=== PATIENT | male | born 1940 | race Caucasian/White ===

== ENCOUNTER 2022-02-06 19:08 | Emergency (ER) | payer OTHER ==
--- OUTSIDE RECORDS SUMMARY | 2022-02-06 19:11 | XMS REPORT | Continuity of Care Document ---
:1940 Author Organization [facility] t Address [address] [place] [address] Care Team Providers Name Role Phone Unavailable Unavailable Unavailable Problems Condition Condition Condition Status Onset Resolution Last Treating Co mments Source Name Details Category Date Date Treatment Clinician Date Hyperchole Hyperchole Disease Active 2015-[address] sterolemia sterolemia Cathy kes 00:00: Medical 00 [place] History of History of Disease Active 2015-[address] CVA [facility]A [facility] ([facility] (cerebrova 00:00: Al dical scular scular 00 [place] accident) accident) Unstable Unstable Disease [facility] 00 [place] Ureteral Ureteral Disease [facility] 2015[facility] calculus [facility]: [facility] 00 [place] CAD CAD Disease Active 2015-[address] [facility] [address] [facility] artery artery 00:00: Medical disease) disease) 00 Center Hx of CABG Hx of CABG Disease Active 2015-[address] [facility] 00[facility] Hypertensi Hypertensi Disease Active 2015-[address] [facility] 00:00: Medical 00 [place] Kidney Kidney Disease Active 2015-[address] [facility] [address] [facility] 00:00: Medical 00 Center Allergies, Adverse Reactions, Alerts Allergy Allergy Status Severity Reaction(s) Onset Inactive Treating Comm ents Source Name Type Date Date Clinician NO KNOWN Allergy Active [facility] Social History Social Habit Start Date Stop Date Quantity Comments Source Sex Ass[birth year] At [birth year] JEANNETTE Lebron 00:00:00 00:00:00 [facility] Medications This patient has no known medications. Procedures This patient has no known procedures. Results This patient has no known results.
[2022-02-06] MEDS ORDERED: TETANUS & DIPHTHERIA TOX,ADULT 0.5 ML VIAL ONE (20:18)
--- NOTE | 2022-02-06 21:05 | RAD REPORT ---
EXAM DESCRIPTION: CT - CTHCSPWOC - 02/06/2022 8:43 pm CLINICAL HISTORY: fall COMPARISON: CT HEAD CSPINE MPR WO CONTRAST dated 03/26/2014; Facial Bones W/ Mpr dated 02/06/2022 TECHNIQUE: Axial 5 mm thick images of the head were obtained. Axial 2 mm thick images of the cervic al spine were obtained with sagittal and coronal reconstruction images generated and reviewed. All CT scans are performed using dose optimization technique as appropriate and may include automated exposure control or mA/KV adjustment according to patient size. FINDINGS: No intracranial hemorrhage, mass, edema or acute intracranial finding. No acute cortical b ased infarction. No cortical edema or sulcal effacement. Atrophy changes are mild. Moderate chronic i schemic change seen in the cerebral white matter. Atrophy of the cerebellum is seen. The intracranial findings are not clearly different from comparison. No extra-axial fluid collections. Mastoid air ce lls are clear. Sinuses, orbits and facial bones are separately detailed. Cervical body height and alignment are normal. All disc spaces are narrowed. There is peripheral calc ification at the C2-3 level indicating at least partial fusion. Endplate spurring and uncovertebral j oint hypertrophy cause borderline or mild central spinal stenosis at C4-5 and C5-6. Bony foraminal en croachment present at these levels. Advanced facet joint degenerative changes are present. An acute f racture is not seen. No pathologic bone process. Degenerative changes are present at the dens and C1 level. Central canal detail is inherently limited. No paraspinal mass or hematoma. IMPRESSION: No hemorrhage, edema or acute intracranial finding. Cervical spine degenerative change with no acute finding. Orbits, sinuses and facial bones are separately detailed.
--- NOTE | 2022-02-06 21:08 | RAD REPORT ---
EXAM DESCRIPTION: CT - Facial Bones W/ Mpr - 02/06/2022 8:43 pm CLINICAL HISTORY: Fall, facial trauma COMPARISON: CT head same date TECHNIQUE: Axial 2 millimeter thick images of the facial bones were obtained with sagittal and coron al reconstruction imaging. All CT scans are performed using dose optimization technique as appropriate and may include automated exposure control or mA/KV adjustment according to patient size. FINDINGS: Small scalp hematoma overlies the right-side of the frontal bone. Underlying bone frontal sinus are intact. No globe or orbital content injury seen. Paranasal sinuses are clear. There is mini mal left deviation of the midportion nasal septum. Mastoid air cells are clear. Dense arterial tree c alcifications are present. Patient appears to have delete select fractures of the nasal bone. No angulation or distraction. No o ther facial bone fractures seen. Condyles of the mandible are normally positioned. No fracture of the mandible seen. IMPRESSION: Small frontal scalp hematoma with underlying bone and frontal sinus intact. Suspected nondisplaced fractures of the nasal bone.
[2022-02-06] MEDS ORDERED: LIDOCAINE 1% MPF 30 ML VIAL ONE (21:41)
--- NOTE | 2022-02-06 22:01 | EDPHYS ---
Physician Documentation [facility] Name: Jairo Verde Age: 82 yrs Sex: Male : 1940 Arrival Date: 02/06/2022 Time: 19:08 Bed Treatment Private MD: ED Physician Naseem Prieto HPI: 02/06 22:00 This 82 yrs old Male presents to ER via Ambulatory with complaints of Head Injury-Adult.ms3 22:00 82-year-old male with past medical history of CVA and hypertension presents 1 hour ms3 status post tripping over an uneven sidewalk. Patient denies pain at this time. Patient states he does take an aspirin daily. Patient denies alleviating or inciting factors. Patient denies loss of consciousness, headache, neck pain.. Historical: - Allergies: 19:15 No Known Allergies; kb3 - Home Meds: 19:15 carvedilol 3.125 mg oral tab 1 tab 2 times per day [Active]; nifedipine 30 mg Oral TbER kb3 1 tab once daily [Active]; aspirin 81 mg Oral TbEC 1 tab once daily [Active]; - PMHx: 19:15 CVA; Hypertension; kb3 - Immunization history:: Adult Immunizations up to date, Client reports receiving the 2nd dose of the Covid vaccine, Last tetanus immunization: up to date. - Social history:: Smoking status: Patient denies any tobacco usage or history of. ROS: 22:00 Constitutional: Negative for fever, and chills. Neck: Negative for injury, pain, and ms3 swelling, Cardiovascular: Negative for chest pain, and palpitations. Respiratory: Negative for shortness of breath, cough, wheezing, and pleuritic chest pain, Abdomen/GI: Negative for abdominal pain, nausea, vomiting, diarrhea, and constipation, MS/Extremity: Negative for injury and deformity, Neuro: Negative for headache, weakness, numbness, tingling. 22:00 Skin: Positive for abrasion(s), laceration(s). 22:00 All other systems are negative. Exam: 22:00 Constitutional: This is a well developed, well nourished patient who is awake, alert, ms3 and in no acute distress. Head/Face: Normocephalic, atraumatic. Neck: Trachea midline, no cervical lymphadenopathy. Supple, full range of motion without nuchal rigidity, or vertebral point tenderness. No Meningismus. Chest/axilla: Normal chest wall appearance and motion. Nontender with no deformity. Cardiovascular: Regular rate and rhythm with a normal S1 and S2. No gallops, murmurs, or rubs. Normal PMI, no JVD. No pulse deficits. Respiratory: Lungs have equal breath sounds bilaterally, clear to auscultation and percussion. No rales, rhonchi or wheezes noted. No increased work of breathing, no retractions or nasal flaring. Abdomen/GI: Soft, non-tender, with normal bowel sounds. No distension or tympany. No guarding or rebound. No evidence of tenderness throughout. MS/ Extremity: Pulses equal, no cyanosis. Neurovascular intact. Full, normal range of motion. Psych: Awake, alert, with orientation to person, place and time. Behavior, mood, and affect are within normal limits. 22:00 Skin: laceration on nasal bridge, abrasion to chin, below right eye. Vital Signs: 19:12 BP 175 / 98; Pulse 72; Resp 20; Temp 98.0; Pulse Ox 97% ; Weight 77.56 kg; Height 5 ft. kb3 8 in. (172.72 cm); Pain 2/10; 19:12 Body Mass Index 26.00 (77.56 kg, 172.72 cm) kb3 [place] Coma Score: 19:12 Eye Response: spontaneous(4). Verbal Response: oriented(5). Motor Response: obeys kb3 commands(6). Total: 15. Laceration: 22:00 Wound Repair of 1cm ( 0.4in ) subcutaneous laceration to face. Distal ms3 neuro/vascular/tendon intact. Anesthesia: Local anesthetic administered with 2 mls of 1% lidocaine. Wound prep: Simple cleansing by me. Skin closed with 2 5-0 chromic using simple sutures and sterile technique. Patient tolerated well. MDM: 19:35 Patient medically screened. ms3 22:00 Data reviewed: vital signs, nurses notes, radiologic studies, and as a result, I will ms3 discharge patient. ED course: Patient's laceration sutured without complications. Patient to follow-up with his primary care physician in 5 days for suture removal if they have not dissolved. Patient understands agrees with plan. All questions were answered. Return precautions discussed include worsening symptoms, or any other concerns. On reevaluation patient is alert and oriented, in no apparent distress, nontoxic, ambulatory in the emergency department. 02/06 19:34 Order name: CT Head C Spine ms3 02/06 19:34 Order name: CT Facial Bones W/O Con; Complete Time: 21:13 ms3 02/06 19:38 Order name: Head C Spine Mpr Wo Con; Complete Time: 21:13 EDMS 02/06 21:41 Order name: Dressing - Wound; Complete Time: 21:42 kb 02/06 21:41 Order name: Gloves, Sterile; Complete Time: 21:42 kb 02/06 21:41 Order name: Setup Suture Tray; Complete Time: 21:42 kb Administered Medications: 20:21 Drug: Tetanus Immune Globulin 250 units Route: IM; Site: left deltoid; hb 21:42 Follow up: Response: No adverse reaction hb 22:00 Drug: Lidocaine (1 %) 1 vials {Note: adminsiterd by SOPHIA Carlin.} Volume: 5 ml; Route: hb Infiltration; Disposition Summary: 02/06/22 22:00 Discharge Ordered Location: Home ms3 Condition: Stable ms3 Diagnosis - Fracture of nasal bones ms3 - Laceration without foreign body of nose ms3 - Fall (on) (from) unspecified stairs and steps ms3 Discharge Instructions: - Discharge Summary Sheet ms3 - Facial Laceration, [id number] ms3 - Nasal Fracture, [id number]-[id number] ms3 Forms: - Medication Reconciliation Form ms3 - Thank You Letter ms3 - Antibiotic Education ms3 - Prescription Opioid Use ms3 Prescriptions: - Augmentin 875-125 mg Oral Tablet - take 1 tablet by ORAL route every 12 hours for 10 days; 20 tablet; Refills: 0, ms3 Product Selection Permitted Signatures: Dispatcher [employer] Raegan Montez, REVIEW SPECIALIST-C REVIEW SPECIALIST-Imani Houser RN RN Naseem Frazier DO DO ms3 Rochelle Gonzalez, RN RN kb3 Corrections: (The following items were deleted from the chart) 02/07 04:38 04:36 This 82 yrs old Male presents to ER via Ambulatory with complaints of Head ms3 Injury-Adult. ms3
--- NOTE | 2022-02-06 22:01 | ER ---
Nurse's Notes 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 Denies LOC. Coronavirus screen: Vaccine status: Patient reports receiving the 2nd dose of the covid vaccine. Client denies travel out of the [place] in the last 14 days. Ebola Screen: Patient negative for fever greater than or equal to 101.5 degrees Fahrenheit, and additional compatible Ebola Virus Disease symptoms Patient denies exposure to infectious person. Patient denies travel to an Ebola-affected area in the 21 days before illness onset. No symptoms or risks identified at this time. Mechanism of Injury: The problem was sustained at a parking lot, restaurant, resulted from a fall, from a standing position. Initial Sepsis Screen: Does the patient meet any 2 criteria? No. Patient's initial sepsis screen is negative. Does the patient have a suspected source of infection? No. Patient's initial sepsis screen is negative. Risk Assessment: Do you want to hurt yourself or someone else? Patient reports no desire to harm self or others. 19:12 Method Of Arrival: Ambulatory 3 19:12 Acuity: EULALIO 3 kb3 Triage Assessment: 19:15 General: Appears in no apparent distress. Behavior is calm, cooperative. Pain: kb3 Complains of pain in face Pain does not radiate. Pain currently is 2 out of 10 on a pain scale. 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 Full function Gait is steady, Speech is normal, Reports Pain to facial abrasions. Historical: - Allergies: 19:15 No Known Allergies; kb3 - Home Meds: 19:15 carvedilol 3.125 mg oral tab 1 tab 2 times per day [Active]; nifedipine 30 mg Oral TbER kb3 1 tab once daily [Active]; aspirin 81 mg Oral TbEC 1 tab once daily [Active]; - PMHx: 19:15 CVA; Hypertension; kb3 - Immunization history:: Adult Immunizations up to date, Client reports receiving the 2nd dose of the Covid vaccine, Last tetanus immunization: up to date. - Social history:: Smoking status: Patient denies any tobacco usage or history of. Screenin:31 Abuse screen: Denies threats or abuse. Denies injuries from another. Nutritional hb screening: No deficits noted. Tuberculosis screening: No symptoms or risk factors identified. Fall Risk None identified. Assessment: 20:22 General: Appears in no apparent distress. Behavior is calm, cooperative. Pain: Pain hb currently is 2 out of 10 on a pain scale. Neuro: Level of Consciousness is awake, alert, obeys commands, Oriented to person, place, time, situation. Cardiovascular: Patient's skin is warm and dry. Respiratory: Respiratory effort is even, unlabored, Respiratory pattern is regular, symmetrical. GI: No signs and/or symptoms were reported involving the gastrointestinal system. : No signs and/or symptoms were reported regarding the genitourinary system. EENT: No signs and/or symptoms were reported regarding the EENT system. Derm: Skin is pink, warm \T\ dry. Musculoskeletal: No signs and/or symptoms reported regarding the musculoskeletal system. 21:31 Reassessment: Patient appears in no apparent distress at this time. Patient and/or hb family updated on plan of care and expected duration. Pain level reassessed. Patient is alert, oriented x 3, equal unlabored respirations, skin warm/dry/pink. Vital Signs: 19:12 BP 175 / 98; Pulse 72; Resp 20; Temp 98.0; Pulse Ox 97% ; Weight 77.56 kg; Height 5 ft. kb3 8 in. (172.72 cm); Pain 2/10; 19:12 Body Mass Index 26.00 (77.56 kg, 172.72 cm) kb3 [place] Coma Score: 19:12 Eye Response: spontaneous(4). Verbal Response: oriented(5). Motor Response: obeys kb3 commands(6). Total: 15. ED Course: 19:08 Patient arrived in ED. ja2 19:15 Triage completed. kb3 19:15 Arm band placed on right wrist. Bandage applied. kb3 19:20 Naseem Prieto DO is Attending Physician. ms3 19:23 Imani Quinn, RN is Primary Nurse. hb 20:44 Head C Spine Mpr Wo Con In Process Unspecified. EDMS 20:44 CT Facial Bones W/O Con In Process Unspecified. EDMS 21:31 Patient has correct armband on for positive identification. hb 21:43 No provider procedures requiring assistance completed. Patient did not have IV access hb during this emergency room visit. Administered Medications: 20:21 Drug: Tetanus Immune Globulin 250 units Route: IM; Site: left deltoid; hb 21:42 Follow up: Response: No adverse reaction hb 22:00 Drug: Lidocaine (1 %) 1 vials {Note: adminsiterd by SOPHIA Carlin.} Volume: 5 ml; Route: hb Infiltration; Medication: 21:43 Vaccine Information Statement (VIS) provided today. Questions and/or concerns hb addressed. VIS edition date: February 06, 2022. Outcome: 22:00 Discharge ordered by MD. ms3 22:14 Discharged to home ambulatory. hb 22:14 Condition: stable 22:14 Discharge instructions given to patient, Instructed on discharge instructions, follow up and referral plans. medication usage, Demonstrated understanding of instructions, follow-up care, medications, Prescriptions given X 1. 22:14 Patient left the ED. hb Signatures: Dispatcher [employer] EDMS Imani Quinn, RN RN Naseem Prieto DO DO ms3 Daniella Beck Kelly RN RN kb3
[2022-02-06 23:27] VITALS: BP 175/98; TEMP 98; O2SAT 97
== END 2022-02-06 22:14 | disposition home or self-care (01) ==
LOC: ER 19:08
PROC: 0JQ10ZZ Repair Face Subcutaneous Tissue and Fascia, Open Approach (ICD-10-PCS; principal; 2022-02-06)
DX: S02.2XXA Fracture of nasal bones, initial encounter for closed fracture (principal); W01.198A Fall on same level from slipping, tripping and stumbling with subsequent striking against other object, initial encounter; Y93.01 Activity, walking, marching and hiking; Y92.481 Parking lot as the place of occurrence of the external cause; S01.21XA Laceration without foreign body of nose, initial encounter
CPT/HCPCS: 70450; 70486; 72125; 76377; 90471; 90714; 99283

== ENCOUNTER 2022-04-24 10:05 | Emergency (ER) | payer MEDICARE, OTHER ==
--- OUTSIDE RECORDS SUMMARY | 2022-04-24 10:09 | XMS REPORT | Continuity of Care Document ---
:1940 Author Organization [facility] t Address [address] [place] [address] Care Team Providers Name Role Phone Unavailable Unavailable Unavailable Payers Payer Name Policy Type Policy Number Effective Date Expiration Date [facility] [id number] 2020 (MEDICARE 00:00:00 REPLACEMENT HMO) Problems Condition Condition Condition Status Onset Resolution Last Treating Co mments Source Name Details Category Date Date Treatment Clinician Date History of History of Disease Active 2015-[address] CVA CVA 2 [facility] (cerebrova (cerebrova 00:00: Il dical scular scular 00 [place] accident) accident) Unstable Unstable Disease [facility] 00[facility]: Medical 00 [place] Ureteral Ureteral Disease Active 2015[facility] calculus calculus 2 [facility] 00:00: Medical 00 [place] CAD CAD Disease Active 2015-[address] [facility] [facility] (coronary 2- [facility] s artery artery 00:00: Medical disease) disease) 00 Center Hx of CABG Hx of CABG Disease Active 2015-[address] 2-31 [facility] 00:00: Medical 00 [place] Hypertensi Hypertensi Disease Active 2015-[address] [facility] on 2 [facility] 00:00: Medical 00 [place] Hyperchole Hyperchole Disease Active 2015-[address] sterolemia sterolemia 2-31 Cathy kes 00:00: Medical 00 [place] Kidney Kidney Disease Active 2015-[address] [facility] 2[facility]30 [facility] 00:00: Medical 00 [facility] Allergies, Adverse Reactions, Alerts Allergy Allergy Status Severity Reaction(s) Onset Inactive Treating Comm ents Source Name Type Date Date Clinician NO KNOWN Allergy Active [facility] Social History Social Habit Start Date Stop Date Quantity Comments Source Sex Ass[birth year] At [birth year] JEANNETTE Lebron 00:00:00 00:00:00 [facility] Medications This patient has no known medications. Procedures This patient has no known procedures. Encounters Start End Encounter Admission Attending Care Care Encounter Source Date/Time Date/Time Type Type Clinicians Facility Department ID 2020-03-08 2020-03-08 Outpatient [facility] [id number] [facility]:00:00 [facility]:00:00 [facility] Results This patient has no known results.
--- NOTE | 2022-04-24 10:54 | ER ---
Nurse's Notes [facility] Name: Jairo Verde Age: 82 yrs Sex: Male : 1940 Arrival Date: 04/24/2022 Time: 10:07 Bed 11 Private MD: Diagnosis: Pain in right foot;Gout, unspecified Presentation: 04/24 10:38 Chief complaint: Patient states: My right foot has been swollen and hurting for the kr3 last 4 days. It has gotten worse every day. Coronavirus screen: Vaccine status: Patient reports receiving the 2nd dose of the covid vaccine. Client denies travel out of the [place] in the last 14 days. Ebola Screen: Patient denies travel to an Ebola-affected area in the 21 days before illness onset. Initial Sepsis Screen: Does the patient meet any 2 criteria? No. Patient's initial sepsis screen is negative. Does the patient have a suspected source of infection? No. Patient's initial sepsis screen is negative. Risk Assessment: Do you want to hurt yourself or someone else? Patient reports no desire to harm self or others. Onset of symptoms was April 20, 2022. 10:38 Method Of Arrival: Wheelchair kr3 10:38 Acuity: EULALIO 4 kr3 Triage Assessment: 10:41 General: Appears in no apparent distress. uncomfortable, Behavior is calm, cooperative, kr3 appropriate for age. Pain: Complains of pain in right foot. EENT: No signs and/or symptoms were reported regarding the EENT system. Neuro: Level of Consciousness is awake, alert, obeys commands, Oriented to person, place, time, situation. Cardiovascular: Patient's skin is warm and dry. Respiratory: Airway is patent Respiratory effort is even, unlabored, Respiratory pattern is regular, symmetrical. GI: No signs and/or symptoms were reported involving the gastrointestinal system. : No signs and/or symptoms were reported regarding the genitourinary system. Derm: No signs and/or symptoms reported regarding the dermatologic system. Musculoskeletal: Swelling present in right foot. Musculoskeletal: Reports pain in right foot. Historical: - Allergies: 10:40 No Known Allergies; kr3 - PMHx: 10:40 CVA; Hypertension; kr3 - Immunization history:: Adult Immunizations not up to date. - Social history:: Smoking status: Patient denies any tobacco usage or history of. Screenin:43 [facility] ED Fall Risk Assessment (Adult) History of falling in the last 3 months, kr3 including since admission Yes- single mechanical fall (1 pt) Confusion or Disorientation No (0 pts) Intoxicated or Sedated No (0 pts) Impaired Gait No (0 pts) Mobility Assist Device Used No (0 pt) Altered Elimination No (0 pt) Score/Fall Risk Level 0 - 2 = Low Risk. Abuse screen: Denies threats or abuse. Nutritional screening: No deficits noted. Tuberculosis screening: No symptoms or risk factors identified. Assessment: 11:09 Reassessment: Patient appears in no apparent distress at this time. Patient and/or kr3 family updated on plan of care and expected duration. Pain level reassessed. Patient is alert, oriented x 3, equal unlabored respirations, skin warm/dry/pink. Vital Signs: 10:38 BP 139 / 88; Pulse 66; Resp 17; Temp 97.8; Pulse Ox 100% on R/A; kr3 11:09 BP 108 / 76; Pulse 75; Resp 18; Pulse Ox 100% on R/A; kr3 ED Course: 10:07 Patient arrived in ED. as 10:09 [facility]C [facility] snw 10:09 Naseem Prieto DO is Attending Physician. snw 10:38 Frances Stewart, HARPER is Primary Nurse. kr3 10:40 Triage completed. kr3 10:43 Arm band placed on right wrist. Patient placed in an exam room, on a stretcher. kr3 10:44 Bed in low position. Call light in reach. Side rails up X 1. kr3 11:09 No provider procedures requiring assistance completed. Patient did not have IV access kr3 during this emergency room visit. Administered Medications: 10:58 Drug: Cipro (ciprofloxacin) 500 mg Route: PO; kr3 11:11 Follow up: Response: No adverse reaction kr3 10:58 Drug: Colcrys (colchicine) 1.2 mg Route: PO; kr3 11:11 Follow up: Response: No adverse reaction kr3 Medication: 11:10 VIS not applicable for this client. kr3 Outcome: 10:54 Discharge ordered by . snw 11:10 Discharged to home ambulatory. kr3 11:10 Condition: stable 11:10 Discharge instructions given to patient, Instructed on discharge instructions, follow up and referral plans. medication usage, Demonstrated understanding of instructions, follow-up care, medications, Prescriptions given X 3. 11:10 Patient left the ED. kr3 Signatures: Ria Osman, ACCOUNT FINANCIAL MANAGER-C ACCOUNT FINANCIAL MANAGER-Csnw Gretchen German Kelley RN RN kr3 Corrections: (The following items were deleted from the chart) 11:08 11:08 Colcrys (colchicine) 1.2 mg PO kr3 kr3
--- NOTE | 2022-04-24 10:54 | EDPHYS ---
Physician Documentation [facility] Name: Jairo Verde Age: 82 yrs Sex: Male : 1940 Arrival Date: 04/24/2022 Time: 10:07 Bed 11 Private MD: ED Physician Naseem Prieto HPI: 04/24 10:59 This 82 yrs old Male presents to ER via Wheelchair with complaints of Foot Pain - snw infection. 10:59 The patient presents with pain, that is acute, swelling. The complaints affect the snw dorsum of right foot. Context: The problem was sustained at home, resulted from an unknown cause, the patient can partially bear weight. Onset: The symptoms/episode began/occurred acutely, 3 day(s) ago, and became worse every day, and became persistent. Severity of symptoms: At their worst the symptoms were moderate, severe. The patient has experienced a previous episode. seefatimah Alejandra NP. no fever, takes anticoagulants. Historical: - Allergies: 10:40 No Known Allergies; kr3 - PMHx: 10:40 CVA; Hypertension; kr3 - Immunization history:: Adult Immunizations not up to date. - Social history:: Smoking status: Patient denies any tobacco usage or history of. ROS: 10:58 Constitutional: Negative for fever, chills, and weight loss, Eyes: Negative for injury, snw pain, redness, and discharge, ENT: Negative for injury, pain, and discharge, Neck: Negative for injury, pain, and swelling, Cardiovascular: Negative for chest pain, palpitations, and edema, Respiratory: Negative for shortness of breath, cough, wheezing, and pleuritic chest pain, Abdomen/GI: Negative for abdominal pain, nausea, vomiting, diarrhea, and constipation, Back: Negative for injury and pain, : Negative for injury, bleeding, discharge, and swelling, MS/Extremity: Negative for injury and deformity, +pain and swelling to right foot x 3 days Skin: Negative for injury, rash, and discoloration, Neuro: Negative for headache, weakness, numbness, tingling, and seizure, Psych: Negative for depression, anxiety, suicide ideation, homicidal ideation, and hallucinations. Exam: 10:56 Constitutional: This is a well developed, well nourished patient who is awake, alert, snw and in no acute distress. Head/Face: Normocephalic, atraumatic. Eyes: Pupils equal round and reactive to light, extra-ocular motions intact. Lids and lashes normal. Conjunctiva and sclera are non-icteric and not injected. Cornea within normal limits. Periorbital areas with no swelling, redness, or edema. ENT: Nares patent. No nasal discharge, no septal abnormalities noted. Tympanic membranes are normal and external auditory canals are clear. Oropharynx with no redness, swelling, or masses, exudates, or evidence of obstruction, uvula midline. Mucous membranes moist. Neck: Trachea midline, no thyromegaly or masses palpated, and no cervical lymphadenopathy. Supple, full range of motion without nuchal rigidity, or vertebral point tenderness. No Meningismus. Chest/axilla: Normal chest wall appearance and motion. Nontender with no deformity. No lesions are appreciated. Cardiovascular: Regular rate and rhythm with a normal S1 and S2. No gallops, murmurs, or rubs. Normal PMI, no JVD. No pulse deficits. Respiratory: Lungs have equal breath sounds bilaterally, clear to auscultation and percussion. No rales, rhonchi or wheezes noted. No increased work of breathing, no retractions or nasal flaring. Abdomen/GI: Soft, non-tender, with normal bowel sounds. No distension or tympany. No guarding or rebound. No evidence of tenderness throughout. Back: No spinal tenderness. No costovertebral tenderness. Full range of motion. Neuro: Awake and alert, GCS 15, oriented to person, place, time, and situation. Cranial nerves II-XII grossly intact. Motor strength 5/5 in all extremities. Sensory grossly intact. Cerebellar exam normal. Normal gait. Psych: Awake, alert, with orientation to person, place and time. Behavior, mood, and affect are within normal limits. 10:56 Musculoskeletal/extremity: Circulation is intact in all extremities. Sensation intact. right foot edematous, tender to touch, mcp with tenderness and mild erythema. 10:56 Skin: Appearance: normal except for affected area, cellulitis, that is minimal, on the medial aspect of right toes. Vital Signs: 10:38 BP 139 / 88; Pulse 66; Resp 17; Temp 97.8; Pulse Ox 100% on R/A; kr3 11:09 BP 108 / 76; Pulse 75; Resp 18; Pulse Ox 100% on R/A; kr3 MDM: 10:37 Patient medically screened. snw 10:57 Differential diagnosis: contusion, gout/cellulitis. Data reviewed: vital signs, nurses snw notes. Data interpreted: Pulse oximetry: on room air is 100 %. Interpretation: normal. Counseling: I had a detailed discussion with the patient and/or guardian regarding: the historical points, exam findings, and any diagnostic results supporting the discharge/admit diagnosis, the presence of at least one elevated blood pressure reading (>120/80) during this emergency department visit, the need for outpatient follow up, to return to the emergency department if symptoms worsen or persist or if there are any questions or concerns that arise at home. Special discussion: Based on the history and exam findings, there is no indication for further emergent testing or inpatient evaluation. I discussed with the patient/guardian the need to see the primary care provider for further evaluation of the symptoms. Administered Medications: 10:58 Drug: Cipro (ciprofloxacin) 500 mg Route: PO; kr3 11:11 Follow up: Response: No adverse reaction kr3 10:58 Drug: Colcrys (colchicine) 1.2 mg Route: PO; kr3 11:11 Follow up: Response: No adverse reaction kr3 Disposition: 16:12 Co-signature as Attending Physician, Naseem Prieto DO I was immediately available on-site ms3 in the Emergency Department for consultation in the care of the patient. Disposition Summary: 04/24/22 10:54 Discharge Ordered Location: Home snw Condition: Stable snw Diagnosis - Pain in right foot snw - Gout, unspecified snw Followup: snw - With: Emergency Department - When: As needed - Reason: Worsening of condition Followup: snw - With: Private Physician - When: 2 - 3 days - Reason: Recheck today's complaints, Continuance of care, Re-evaluation by your physician Discharge Instructions: - Discharge Summary Sheet snw - Gout snw - Musculoskeletal Pain snw - Low-Purine Eating Plan snw - Heat Therapy snw - Foot Pain snw Forms: - Medication Reconciliation Form snw - Thank You Letter snw - Antibiotic Education snw - Prescription Opioid Use snw Prescriptions: - Cipro 500 mg Oral Tablet - take 1 tablet by ORAL route every 12 hours for 10 days; 20 tablet; Refills: 0, snw Product Selection Permitted - Pepcid 20 mg Oral Tablet - take 1 tablet by ORAL route once daily; 20 tablet; Refills: 0, Product snw Selection Permitted - Prednisone 20 mg Oral Tablet - take 1 tablet by ORAL route every 12 hours for 5 days; 10 tablet; Refills: 0, snw Product Selection Permitted Signatures: Ria Osman, DELICATESSEN STORE MANAGER-C DELICATESSEN STORE MANAGER-Csnw Naseem Prieto DO DO ms3 Frances Stewart RN RN kr3
[2022-04-24] MEDS ORDERED: COLCHICINE 0.6 MG TAB ONE (10:59)
[2022-04-24] MEDS ORDERED: CIPROFLOXACIN HCL 500 MG TAB ONE (10:59)
[2022-04-24 11:15] VITALS: TEMP 97.8; O2SAT 100
[2022-04-24 11:16] VITALS: BP 108/76
== END 2022-04-24 11:10 | disposition home or self-care (01) ==
LOC: ER 10:05
DX: M10.9 Gout, unspecified (principal)
CPT/HCPCS: 99283

== ENCOUNTER 2022-05-12 13:41 | Emergency (ER) | payer MEDICARE ==
--- OUTSIDE RECORDS SUMMARY | 2022-05-12 13:45 | XMS REPORT | Continuity of Care Document ---
:1940 Author Organization [facility] t Address [address] [place] [address] Care Team Providers Name Role Phone Unavailable Unavailable Unavailable Payers Payer Name Policy Type Policy Number Effective Date Expiration Date [facility] [id number] 2020 (MEDICARE 00:00:00 REPLACEMENT HMO) Problems Condition Condition Condition Status Onset Resolution Last Treating Co mments Source Name Details Category Date Date Treatment Clinician Date History of History of Disease Active 2015-[address] [facility] 2 [facility] ([facility]cerebrova 00:00: Tn dical scular scular 00 [place] accident) accident) Unstable Unstable Disease [facility] [place] Ureteral Ureteral Disease [facility] 2015[facility] [place] CAD CAD Disease Active 2015-[address] [facility] (coronary (coronary 2- [facility] artery artery 00:00: Medical disease) disease) 00 [facility] Hx of CABG Hx of CABG Disease Active 2015-[address] [facility] 2-[facility] [place] Hypertensi Hypertensi Disease Active 2015-[address] on on 2 [facility]: [facility] 00 [place] Hyperchole Hyperchole Disease Active 2015-[address] sterolemia sterolemia 2-31 [facility] k[facility] 00:00: Medical 00 [place] Kidney Kidney Disease Active 2015-[address] [facility] [address] stone stone 2-30 [facility] Allergies, Adverse Reactions, Alerts Allergy Allergy Status Severity Reaction(s) Onset Inactive Treating Comm ents Source Name Type Date Date Clinician NO KNOWN Allergy Active [facility] Social History Social Habit Start Date Stop Date Quantity Comments Source Sex Assigned At [birth year] JEANNETTE Lebron 00:00:00 00:00:00 [facility] Medications This patient has no known medications. Procedures This patient has no known procedures. Encounters Start End Encounter Admission Attending Care Care Encounter Source Date/Time Date/Time Type Type Clinicians Facility Department ID 2022-04-27 2022-04-27 Outpatient [facility] DMG [id number] [facility] 00:00:00 00:00:00 0[facility] 2020-03-08 2020-03-08 Outpatient [facility] DMG [id number] [facility] 00:00:00 00:00:00 1120 [facility] l Group 2020-03-08 2020-03-08 Outpatient [facility] DMG [id number] [facility] 00:00:00 00:00:00 0106 [facility] Results This patient has no known results.
--- NOTE | 2022-05-12 14:54 | ER ---
Nurse's Notes [facility] Name: Jairo Verde Age: 82 yrs Sex: Male : 1940 Arrival Date: 05/12/2022 Time: 13:42 Bed IW1 Private MD: Diagnosis: Gout, unspecified Presentation: 05/12 14:11 Chief complaint: Patient states: Left foot swelling x 2 days, denies trauma. jl7 Coronavirus screen: Vaccine status: Patient reports receiving the 2nd dose of the covid vaccine. At this time, the client does not indicate any symptoms associated with coronavirus-19. Ebola Screen: No symptoms or risks identified at this time. Initial Sepsis Screen: Does the patient meet any 2 criteria? No. Patient's initial sepsis screen is negative. Does the patient have a suspected source of infection? No. Patient's initial sepsis screen is negative. Risk Assessment: Do you want to hurt yourself or someone else? Patient reports no desire to harm self or others. Onset of symptoms was May 09, 2022. 14:11 Method Of Arrival: Ambulatory [facility] 14:11 Acuity: EULALIO 3 jl7 Triage Assessment: 14:25 General: Appears in no apparent distress. uncomfortable, Behavior is calm, cooperative, jl7 appropriate for age. Pain: Complains of pain in left foot Pain currently is 7 out of 10 on a pain scale. Historical: - Allergies: 14:14 No Known Allergies; jl7 - Home Meds: 14:14 nifedipine 30 mg Oral TbER 1 tab once daily [Active]; carvedilol 3.125 mg Oral tab 1 jl7 tab 2 times per day [Active]; aspirin 81 mg Oral TbEC 1 tab once daily [Active]; - PMHx: 14:14 CVA; Hypertension; jl7 - Immunization history:: Client reports receiving the 2nd dose of the Covid vaccine. - Social history:: Smoking status: Patient denies any tobacco usage or history of. Screenin:36 [facility] ED Fall Risk Assessment (Adult) History of falling in the last 3 months, jl7 including since admission No falls in past 3 months (0 pts) Confusion or Disorientation No (0 pts) Intoxicated or Sedated No (0 pts) Impaired Gait No (0 pts) Mobility Assist Device Used No (0 pt) Altered Elimination No (0 pt) Score/Fall Risk Level 0 - 2 = Low Risk Oriented to surroundings. Abuse screen: Denies threats or abuse. Denies injuries from another. Nutritional screening: No deficits noted. Tuberculosis screening: No symptoms or risk factors identified. Assessment: 14:36 Reassessment: ER provider in triage assessing pt. jl7 16:43 Reassessment: Pt was discharged prior to medication administration, notified pt by jl7 telephone and returned to ED for administration of ordered medications. Vital Signs: 14:11 BP 106 / 70; Pulse 81; Resp 17; Temp 98.4; Pulse Ox 98% on R/A; Weight 76.66 kg; Height jl7 5 ft. 8 in. (172.72 cm); Pain 7/10; 14:11 Body Mass Index 25.70 (76.66 kg, 172.72 cm) jl7 ED Course: 13:42 Patient arrived in ED. am2 13:54 Anjana Mi PA is PHCP. en 13:54 Naseem Prieto DO is Attending Physician. en 14:14 Triage completed. jl7 14:25 Arm band placed on right wrist. jl7 14:36 Patient has correct armband on for positive identification. jl7 14:36 No provider procedures requiring assistance completed. Patient did not have IV access jl7 during this emergency room visit. Administered Medications: 16:25 Drug: HYDROcodone-acetaminophen 5 mg-325 mg 1 tabs Route: PO; jl7 16:30 Follow up: Response: Medication administered at discharge. jl7 16:25 Drug: Colchicine-Probenecid 2 tabs Route: PO; jl7 16:30 Follow up: Response: Medication administered at discharge. jl7 Medication: 14:36 VIS not applicable for this client. jl7 Outcome: 14:53 Discharge ordered by . en 15:17 Discharged to home ambulatory. jl7 15:17 Condition: stable 15:17 Discharge instructions given to patient, Instructed on discharge instructions, follow up and referral plans. medication usage, Demonstrated understanding of instructions, follow-up care, medications, Prescriptions given X 2. 15:18 Patient left the ED. jl7 16:43 Patient left the ED. jl7 Signatures: Pablo Becerra RN RN jl7 Reanna Gordon am2 Anjana Mi PA PA en Corrections: (The following items were deleted from the chart) 16:35 15:20 Colchicine-Probenecid 2 tabs PO jl7 jl7
--- NOTE | 2022-05-12 14:54 | EDPHYS ---
Physician Documentation [facility] Name: Jairo Verde Age: 82 yrs Sex: Male : 1940 Arrival Date: 05/12/2022 Time: 13:42 Bed IW1 Private MD: ED Physician Naseem Prieto HPI: 05/12 14:42 This 82 yrs old Male presents to ER via Ambulatory with complaints of left toe pain. en 14:42 82-year-old male with history of gout, CAD with stents, hypertension presents to ED en with 2 days of worsening pain, redness over the left first metatarsal joint. He is on allopurinol and his last gout attack was last year. He was seen by his PCP who wrote him antibiotics with resolution. He denies fever, chills, nausea, vomiting. No numbness, tingling or trauma.. Historical: - Allergies: 14:14 No Known Allergies; jl7 - Home Meds: 14:14 nifedipine 30 mg Oral TbER 1 tab once daily [Active]; carvedilol 3.125 mg Oral tab 1 jl7 tab 2 times per day [Active]; aspirin 81 mg Oral TbEC 1 tab once daily [Active]; - PMHx: 14:14 CVA; Hypertension; jl7 - Immunization history:: Client reports receiving the 2nd dose of the Covid vaccine. - Social history:: Smoking status: Patient denies any tobacco usage or history of. ROS: 14:42 Constitutional: Negative for fever, chills, and weight loss. en 14:42 MS/extremity: Positive for Redness, pain, swelling to the left first metatarsal joint. Exam: 14:42 Constitutional: This is a well developed, well nourished patient who is awake, alert, en and in no acute distress. 14:42 Respiratory: the patient does not display signs of respiratory distress. 14:42 Musculoskeletal/extremity: Foreign to motion of bilateral lower extremities. Left foot first metatarsal joint with circumferential swelling, hypersensitive to touch, mild plantar erythema with warmth. No erythema circumferentially around the foot of the toe. Cap refill less than 2 seconds. Doppler signal pulses 2 both DP and PT pulses bilaterally. Vital Signs: 14:11 BP 106 / 70; Pulse 81; Resp 17; Temp 98.4; Pulse Ox 98% on R/A; Weight 76.66 kg; Height jl7 5 ft. 8 in. (172.72 cm); Pain 7/10; 14:11 Body Mass Index 25.70 (76.66 kg, 172.72 cm) jl7 MDM: 13:55 Patient medically screened. en 14:42 Differential Diagnosis cellulitis, gout, inflammation, arthritis. Data reviewed: vital en signs, nurses notes. Test considered but Not performed: Labs: pt with good pulses. no E/O cellulitis or PAD. Likely gout attack. No labs warranted at this time. Care significantly affected by the following chronic conditions: Hypertension, CVA, gout. Counseling: I had a detailed discussion with the patient and/or guardian regarding: the historical points, exam findings, and any diagnostic results supporting the discharge/admit diagnosis, the need for outpatient follow up. Administered Medications: 16:25 Drug: HYDROcodone-acetaminophen 5 mg-325 mg 1 tabs Route: PO; jl7 16:30 Follow up: Response: Medication administered at discharge. 7 16:25 Drug: Colchicine-Probenecid 2 tabs Route: PO; jl7 16:30 Follow up: Response: Medication administered at discharge. 7 Disposition: 18:49 Co-signature as Attending Physician, Naseem Prieto DO I reviewed the patient's care ms3 provided by the Advanced Practice Provider and agree with the diagnosis and treatment plan. Disposition Summary: 05/12/22 14:53 Discharge Ordered Location: Home en Problem: an acute exacerbation en Symptoms: are unchanged en Condition: Stable en Diagnosis - Gout, unspecified en Followup: en - With: Private Physician - When: As needed - Reason: Discharge Instructions: - Discharge Summary Sheet en - Gout en - Gout, [id number] en Forms: - Medication Reconciliation Form en - Thank You Letter en - Antibiotic Education en - Prescription Opioid Use en Prescriptions: - cephalexin 500 mg Oral capsule - take 1 capsule by ORAL route every 6 hours for 7 days; 24 capsule; Refills: 0, en Product Selection Permitted - Anaprox DS 550 mg Oral Tablet - take 1 tablet by ORAL route every 12 hours As needed; 20 tablet; Refills: 0, en Product Selection Permitted Signatures: Pablo Becerra RN RN jl7 Naseem Prieto DO DO ms3 Hiwot, Anjana, PA PA en
[2022-05-12 16:13] VITALS: BP 106/70; TEMP 98.4; O2SAT 98
[2022-05-12] MEDS ORDERED: COLCHICINE 0.6 MG TAB ONE (16:27)
[2022-05-12] MEDS ORDERED: HYDROCODONE/APAP 5/325 MG TAB ONE (16:28)
== END 2022-05-12 16:43 | disposition home or self-care (01) ==
LOC: ER 13:41
DX: M10.9 Gout, unspecified (principal); I10 Essential (primary) hypertension; Z86.73 Personal history of transient ischemic attack (TIA), and cerebral infarction without residual deficits
CPT/HCPCS: 99283

== ENCOUNTER 2024-09-08 20:04 | Observation (INO) | payer MEDICARE ==
[2024-09-08 20:54] LABS: Absolute Basophils 0.1 K/uL (0-0.5); Absolute Eosinophils 0.8 K/uL (0-0.5); Absolute Lymphocytes (CBC) 1.2 K/uL (0.7-4.9); Absolute Monocytes 0.9 K/uL (0.1-1.3); Absolute Neutrophil 7.5 K/uL (1.8-8.0); Basophils % 1.1 % (0-1.3); Eosinophils % 7.2 % (0-4.4); Hematocrit 44.4 % (39.6-49.0); Hemoglobin 15.1 g/dL (13.6-17.9); Lymphocytes % 11.8 % (15.3-44.8); MCH 29.2 pg (27.0-35.0); MCHC 34.1 g/dL (32.0-36.0); MCV 85.6 fL (80-100); MPV 9.2 fL (7.6-11.3); Monocytes % 8.8 % (3.3-12.3); Neutrophils % 71.1 % (41.7-73.7); Nucleated Red Blood Cells % 0.1 % (0-0); Platelets 116 thou/uL (152-406); RBC Red Blood Cell Count 5.18 M/uL (4.33-5.43); Red Cell Distribution Width 15.1 % (12.1-15.2)
[2024-09-08 21:01] LABS: PT Prothrombin Time 12.1 SECONDS (10-13.0); Protime INR 1.06
--- NOTE | 2024-09-08 21:01 | RAD REPORT ---
EXAMINATION: ONE VIEW CHEST XR CLINICAL INDICATION: CHEST PAIN TECHNIQUE: Frontal chest projection is submitted. Examination is limited by patient positioning and t echnique. COMPARISON: 01/02/2015 FINDINGS: The lungs are well inflated and clear. Postsurgical changes of a CABG. Mild cardiomegaly. No displace d fractures identified. Aortic atherosclerosis versus. IMPRESSION: No acute intrathoracic abnormalities.
[2024-09-08] MEDS ORDERED: MORPHINE 4 MG/ML SYR ONE (21:07)
[2024-09-08] MEDS ORDERED: ONDANSETRON 4 MG/2 ML VIAL ONE (21:07)
[2024-09-08 21:14] LABS: ALT/SGPT 19 U/L (16-61); Albumin 3.4 g/dL (3.4-5.0); Alkaline Phosphatase 83 U/L (45-117); Anion Gap 10.2 mEq/L (5.0-15.0); BUN Blood Urea Nitrogen 42 mg/dL (7-18); Bicarbonate 27 mEq/L (21-32); Bilirubin Total 0.5 mg/dL (0.2-1.0); Globulin 3.4 g/dL (2.3-3.5); Glomerular Filtration Rate 32 ml/min (=/>90); Glucose Level 151 mg/dL (74-106); Magnesium 2.3 mg/dL (1.6-2.4); NT PRO-BNP 394 pg/mL (<450); Potassium 4.2 mEq/L (3.5-5.1); Protein, Total 6.8 g/dL (6.4-8.2); Sodium Level 140 mEq/L (136-145); Troponin High Sensitivity 35.2 pg/mL (<58.9)
[2024-09-08 21:18] LABS: AST/SGOT < 10 U/L (15-37); Bilirubin Direct < 0.2 mg/dL (0-0.2); Bilirubin Indirect, Calculated 0.3 mg/dL (0.2-0.8)
--- NOTE | 2024-09-08 21:34 | ER ---
Nurse's Notes [facility] Name: Jairo Verde Age: 84 yrs Sex: Male : 1940 Arrival Date: 09/08/2024 Time: 20:03 Bed 18 Private MD: Diagnosis: Chest pain, unspecified;Acute kidney failure, unspecified;Essential (primary) hypertension Presentation: 09/08 20:10 Chief complaint: EMS states: toned out for CP that radiates to jaw, sudden onset me1 "pressure" 8/10. bp was 220/110. Given aspirin 324 mg po and nitro x3 SL. bp decreased to 146/90, CP decreased to "0/10". Coronavirus screen: Vaccine status: Patient reports receiving the 1st dose of the Covid vaccine. Ebola Screen: No symptoms or risks identified at this time. Initial Sepsis Screen: Does the patient meet any 2 criteria? No. Patient's initial sepsis screen is negative. Does the patient have a suspected source of infection? No. Patient's initial sepsis screen is negative. Risk Assessment: Do you want to hurt yourself or someone else? Patient reports no desire to harm self or others. Onset of symptoms was September 08, 2024 at 17:00. 20:10 Method Of Arrival: EMS: [facility] me1 20:10 Acuity: EULALIO 3 me1 Triage Assessment: 20:15 General: Appears in no apparent distress. well groomed, well developed, well nourished, me1 Behavior is calm, cooperative, appropriate for age, Reports had cp 8/10 that started suddenly "pressure" and radiated to jaw. After aspirin and nitro x 3 pain level is 0/10. Pain: Complains of pain in chest Pain radiates to left jaw Pain currently is 0 out of 10 on a pain scale. at worst was 8 out of 10 on a pain scale. Quality of pain is described as pressure, Pain began suddenly, Is lasting more than 1 hour. EENT: No signs and/or symptoms were reported regarding the EENT system. Neuro: Level of Consciousness is awake, alert, obeys commands, Oriented to person, place, time, situation, Appropriate for age. Cardiovascular: Reports chest pain, Patient's skin is warm and dry. Respiratory: Airway is patent Respiratory effort is even, unlabored, Respiratory pattern is regular, symmetrical. GI: No signs and/or symptoms were reported involving the gastrointestinal system. : No signs and/or symptoms were reported regarding the genitourinary system. Derm: Skin is intact, is healthy with good turgor, Skin is pink, warm \\T\\ dry. Musculoskeletal: No signs and/or symptoms reported regarding the musculoskeletal system. Historical: - Allergies: 20:15 No Known Drug Allergies; me1 - PMHx: 20:15 CVA; Hypertension; me1 - PSHx: 20:15 Coronary artery bypass graft; me1 - Immunization history:: Adult Immunizations up to date. - Infectious Disease History:: Denies. - Social history:: Smoking status: Patient denies any tobacco usage or history of. Screenin:17 [facility] ED Fall Risk Assessment (Adult) History of falling in the last 3 months, me1 including since admission No falls in past 3 months (0 pts) Confusion or Disorientation No (0 pts) Intoxicated or Sedated No (0 pts) Impaired Gait No (0 pts) Mobility Assist Device Used No (0 pt) Altered Elimination No (0 pt) Score/Fall Risk Level 0 - 2 = Low Risk Maintained a safe environment, Provided non-skid footwear, Hourly rounding (assess needs \\T\\ fall precautionary measures) done. Abuse screen: Denies threats or abuse. Nutritional screening: No deficits noted. Tuberculosis screening: No symptoms or risk factors identified. Assessment: 20:17 General: See triage assessment. Pain: Complains of pain in chest Pain currently is 0 me1 out of 10 on a pain scale. Vital Signs: 20:10 BP 165 / 104; Pulse 84; Resp 19; Temp 98.1; Pulse Ox 97% ; Weight 75.3 kg; Height 5 ft. me1 8 in. ; Pain 0/10; 21:00 BP 172 / 111; Pulse 71; Resp 11; Pulse Ox 97% ; me1 21:55 BP 188 / 107; Pulse 74; Resp 14; Pulse Ox 99% ; me1 22:33 BP 197 / 110; Pulse 65; Resp 15; Pulse Ox 97% ; cp4 20:10 Body Mass Index 25.24 (75.30 kg, 172.72 cm) me1 20:10 Pain Scale: Adult wi1 ED Course: 20:03 Patient arrived in ED. vk 20:05 Georgie Galvez PA-C is PHCP. sb4 20:06 Schuyler Holden MD is Attending Physician. sb4 20:09 Jocelyne Daly, HARPER is Primary Nurse. me1 20:15 Triage completed. me1 20:15 Arm band placed on Patient placed in an exam room. me1 20:17 Patient has correct armband on for positive identification. Bed in low position. Call me1 light in reach. Side rails up X2. Provided Education on: POC. Verbalized understanding.. Client placed on continuous cardiac and pulse oximetry monitoring. NIBP monitoring applied. radiation monitor on. Pulse ox on. NIBP on. 20:17 No provider procedures requiring assistance completed. Patient maintains SpO2 me1 saturation greater than 95% on room air. 20:45 Basic Metabolic Panel Sent. me1 20:45 CBC with Diff Sent. me1 20:45 LFT's Sent. me1 20:45 Magnesium Sent. me1 20:45 NT PRO-BNP Sent. me1 20:45 PT-INR Sent. me1 20:45 Troponin HS Sent. me1 20:46 Initial lab(s) drawn, by wi, sent to lab. Inserted saline lock: 22 gauge in left me1 antecubital area, using aseptic technique. 20:58 XRAY Chest (1 view) In Process Unspecified. EDMS 21:33 Prince Wasserman MD is Hospitalizing Provider. sb4 22:58 Patient admitted, IV remains in place. cp4 Administered Medications: 21:17 Drug: morphine IVP or IV 4 mg IVP once over 4 mins Route: IVP; Infused Over: 4 mins; me1 Site: left antecubital; 21:56 Follow up: Response: No adverse reaction; Pain is decreased me1 21:18 Drug: Ondansetron IVP 4 mg IVP once; over 2 minutes Route: IVP; Site: left antecubital; me1 21:56 Follow up: Response: No adverse reaction; Nausea is decreased me1 Medication: 20:17 VIS not applicable for this client. me1 Outcome: 21:33 Decision to Hospitalize by Provider. sb4 22:58 Admitted to Med/surg accompanied by tech, via wheelchair, room 215, with chart, cp4 22:58 Condition: stable 22:58 Discharge instructions given to patient, Instructed on the need for admit, 22:59 Patient left the ED. cp4 Signatures: Dispatcher [employer] Georgie Guzman PA-C PA-C sb4 Jocelyne Daly RN RN me1 Purvi Mccracken cp4 Rosana Ross
--- NOTE | 2024-09-08 21:34 | EDPHYS ---
Physician Documentation [facility] Name: Jairo Verde Age: 84 yrs Sex: Male : 1940 Arrival Date: 09/08/2024 Time: 20:03 Bed 18 Private MD: ED Physician Schuyler Holden HPI: 09/08 20:11 This 84 yrs old Male presents to ER via Unassigned with complaints of Chest Pain. sb4 20:11 The patient or guardian reports chest pain that is located primarily in the substernal sb4 area. Onset: just prior to arrival. The pain radiates to jaw. Associated signs and symptoms: The patient has no apparent associated signs or symptoms. EMS care prior to arrival includes: aspirin, nitroglycerin, x 3, with resolution of the chest pain. Historical: - Allergies: 20:15 No Known Drug Allergies; me1 - PMHx: 20:15 CVA; Hypertension; me1 - PSHx: 20:15 Coronary artery bypass graft; me1 - Immunization history:: Adult Immunizations up to date. - Infectious Disease History:: Denies. - Social history:: Smoking status: Patient denies any tobacco usage or history of. ROS: 20:11 Constitutional: Negative for fever, chills, and weight loss, sb4 20:11 Cardiovascular: Positive for chest pain, 20:11 All other systems are negative, sb4 Exam: 20:11 Constitutional: This is a well developed, well nourished patient who is awake, alert, sb4 and in no acute distress. Head/Face: Normocephalic, atraumatic. Eyes: Extra-ocular motions intact. Periorbital areas with no swelling, redness, or edema. ENT: Mucous membranes moist. Cardiovascular: Regular rate and rhythm with a normal S1 and S2. Respiratory: No increased work of breathing, no retractions or nasal flaring. Abdomen/GI: Soft, non-tender, no distension. Skin: Warm, dry with normal turgor. Normal color with no rashes, no lesions, and no evidence of cellulitis. Vital Signs: 20:10 BP 165 / 104; Pulse 84; Resp 19; Temp 98.1; Pulse Ox 97% ; Weight 75.3 kg; Height 5 ft. me1 8 in. ; Pain 0/10; 21:00 BP 172 / 111; Pulse 71; Resp 11; Pulse Ox 97% ; me1 21:55 BP 188 / 107; Pulse 74; Resp 14; Pulse Ox 99% ; me1 22:33 BP 197 / 110; Pulse 65; Resp 15; Pulse Ox 97% ; cp4 20:10 Body Mass Index 25.24 (75.30 kg, 172.72 cm) me1 20:10 Pain Scale: Adult me1 MDM: 20:06 Medical Screening Exam initiated sb4 22:08 The patient was not given aspirin in the Emergency Department. Administered by EMS. sb4 Data reviewed: vital signs, nurses notes, lab test result(s), EKG, radiologic studies, and as a result, I will admit patient. Counseling: I had a detailed discussion with the patient and/or guardian regarding the historical points, exam findings, and any diagnostic results supporting the discharge/admit diagnosis, the presence of at least one elevated blood pressure reading (>120/80) during this emergency department visit, lab results, radiology results, the need for further work-up and treatment in the hospital. 09/08 20:06 Order name: Basic Metabolic Panel; Complete Time: 17:23 sb4 09/08 20:06 Order name: CBC with Diff; Complete Time: 20:56 sb4 09/08 20:06 Order name: LFT's; Complete Time: 17:23 sb4 09/08 20:06 Order name: Magnesium; Complete Time: 17:23 sb4 09/08 20:06 Order name: NT PRO-BNP; Complete Time: 17:23 sb4 09/08 20:06 Order name: PT-INR; Complete Time: 21:03 sb4 09/08 20:06 Order name: Troponin HS; Complete Time: 17:23 sb4 09/08 21:48 Order name: Basic Metabolic Panel EDMS 09/08 21:48 Order name: Basic Metabolic Panel EDMS 09/08 21:48 Order name: CBC with Automated Diff EDMS 09/08 21:48 Order name: CBC with Automated Diff EDMS 09/08 21:48 Order name: Lipid Profile EDMS 09/08 21:48 Order name: Lipid Profile EDMS 09/08 21:48 Order name: Troponin High Sensitivity EDMS 09/08 21:48 Order name: Troponin High Sensitivity EDMS 09/08 21:48 Order name: Troponin High Sensitivity EDMS 09/08 21:48 Order name: Troponin High Sensitivity EDMS 09/08 21:48 Order name: Troponin High Sensitivity EDMS 09/08 20:06 Order name: XRAY Chest (1 view); Complete Time: 21:03 sb4 09/08 21:48 Order name: Echo with Doppler EDMS 09/08 20:06 Order name: EKG; Complete Time: 20:06 sb4 09/08 20:06 Order name: Cardiac monitoring; Complete Time: 20:36 sb4 09/08 20:06 Order name: EKG - Nurse/Tech; Complete Time: 20:35 sb4 09/08 20:06 Order name: IV Saline Lock; Complete Time: 20:45 sb4 09/08 20:06 Order name: Labs collected and sent; Complete Time: 20:45 sb4 09/08 20:06 Order name: O2 Per Protocol; Complete Time: 20:33 sb4 09/08 20:06 Order name: O2 Sat Monitoring; Complete Time: 20:33 sb4 EC:35 Rate is 78 beats/min. Rhythm is regular, Normal Sinus Rhythm. NC interval is prolonged sb4 at 206 msec. QRS interval is normal at 82 msec. QT interval is normal at 376 msec. No Q waves. T waves are Normal. No ST changes noted. Clinical impression: No evidence of ischemia. Interpreted by me. Reviewed by me. Administered Medications: 21:17 Drug: morphine IVP or IV 4 mg IVP once over 4 mins Route: IVP; Infused Over: 4 mins; me1 Site: left antecubital; 21:56 Follow up: Response: No adverse reaction; Pain is decreased me1 21:18 Drug: Ondansetron IVP 4 mg IVP once; over 2 minutes Route: IVP; Site: left antecubital; me1 21:56 Follow up: Response: No adverse reaction; Nausea is decreased me1 Disposition: 09/09 06:28 Co-signature as Attending Physician, Schuyler Holden MD I agree with the assessment sp4 and plan of care. I reviewed the patient's care provided by the Advanced Practice Provider and agree with the diagnosis and treatment plan. Disposition Summary: 09/08/24 21:33 Hospitalization Ordered Notes: Hospitalization Status: Observation sb4 Provider: Buzombo, Ezio sb4 Location: Telemetry/MedSurg (observation) sb4 Condition: Fair sb4 Problem: new sb4 Symptoms: are unchanged sb4 Bed/Room Type: Standard sb4 Room Assignment: 215(09/08/24 22:03) vk Diagnosis - Chest pain, unspecified sb4 - Acute kidney failure, unspecified sb4 - Essential (primary) hypertension sb4 Forms: - Medication Reconciliation Form sb4 - SBAR form sb4 - Leadership Thank You Letter sb4 Signatures: Dispatcher [employer] EDGeorgie Colon PA-C PA-C sb4 Schuyler Holden MD MD sp4 Jocelyne Daly RN RN me1 Rosana Ross Corrections: (The following items were deleted from the chart) 09/08 22:03 21:33 sb4 vk
--- NOTE | 2024-09-08 21:51 | P.HP ---
Certification for Inpatient Patient admitted to: Observation With expected LOS: <2 Midnights Practitioner: I am a practitioner with admitting privileges, knowledge of patient current condition, hospital course, and medical plan of care. Services: Services provided to patient in accordance with Admission requirements found in Title 42 Section 412.3 of the Code of Federal Regulations Patient History Date of Service: 09/08/24 Reason for admission: chest pain History of Present Illness: Patient is a 84-year-old male with a past medical history of hypertension and coronary disease status post CABG. Patient presented to the ER complaining of chest pain. He is describing a substernal chest pain radiating to the left jaw. His pain last a few hours before it let up after receiving NTG by EMS. He was found to be severely hypertensive by EMS with SBP > 200 mmHg. He was given aspirin and 3 nitroglycerin, which resolved his chest pain. Upon arrival, his first troponin was negative. BNP is also negative. Lab work is significant for creatinine of 2.0. He used to have normal creatinine back in 2014. His first EKG is normal, no ischemic changes. Chest x-ray unremarkable. Patient is being admitted for ACS rule out. As stated above, patient has a hx of CABG x 5 in [place] back in 1997. He has been stable. He hasn't had any ischemic work up since surgery. Allergies No Known Drug Allergies Allergy (Verified 02/06/15 14:48) Unknown Home Medications: Aspirin [Aspirin EC 81 MG] 81 mg PO DAILY #30 tablet. 05/28/14 Atorvastatin Calcium [Lipitor*] 10 mg PO BEDTIME #30 tab 05/28/14 Amlodipine [Norvasc*] 5 mg PO BEDTIME 01/03/15 Clopidogrel Bisulfate [Plavix*] 75 mg PO DAILY #30 tablet 01/03/15 Metoprolol Succinate [Toprol Xl] 50 mg PO DAILY #30 tab 01/03/15 lisinopriL [Prinivil*] 10 mg PO DAILY #30 tab 01/03/15 - Past Medical/Surgical History Diabetic: No -: HTN -: stroke 2008 -: Bypass -: stroke - Family History Father -: Heart disease Mother -: Stroke - Social History Alcohol use: Yes CD- Drugs: No Caffeine use: Yes Physical Examination - Physical Exam General: In no apparent distress HEENT: Atraumatic, Normocephalic Respiratory: Clear to auscultation bilaterally, Normal air movement Cardiovascular: No edema, Normal pulses, Regular rate/rhythm, Normal S1 S2, No murmurs Neurological: Normal speech - Studies Laboratory Data (last 24 hrs) 09/08/24 09/08/24 09/08/24 20:40 20:40 20:40 WBC 10.50 Hgb 15.1 Hct 44.4 Plt Count 116 L PT 12.1 INR 1.06 Sodium 140 Potassium 4.2 BUN 42 H Creatinine 2.04 H Glucose 151 H Magnesium 2.3 Total Bilirubin 0.5 AST < 10 L ALT 19 Alkaline Phosphatase 83 Assessment and Plan - Problems (Diagnosis) (1) Hypertension Current Visit: Yes Status: Acute (2) Chest pain Onset Date: 01/03/15 Current Visit: No Status: Acute (3) Coronary artery disease Current Visit: No Status: Chronic - Plan Assessment This is a 84-year-old male with a past medical history of coronary disease status post CABG who is being admitted for chest pain. Patient chest pain sounds typical, substernal and relieved with nitroglycerin. Chest painACS rule out Hypertensive crisis Coronary disease status post CABG Hypertension PAUL versus CKD stage III Plan: Will admit under observation with telemetry Trend troponin Will obtain a 2D echo Cardiology consulted As needed nitroglycerin in place Resume rest of home medication upon reconciliation IV fluid for renal insufficiency Repeat BMP tomorrow - Advance Directives Does patient have a Living Will: Yes Does patient have a Durable POA for Healthcare: No
[2024-09-08] MEDS: carvediloL 25 MG TAB PO SCH (23:37)
[2024-09-08] MEDS: AMLODIPINE 5 MG TAB PO SCH (23:37)
[2024-09-09] MEDS: MELATONIN 3 MG TABLET PO PRN (00:10)
[2024-09-09 00:14] LABS: HDL Cholesterol 28 mg/dL (40-60); LDL Cholesterol, Calculated 72 mg/dL (<130); LDL Cholesterol,Calc NonReport 72
[2024-09-09 00:34] VITALS: BMI 25.2
[2024-09-09] MEDS: HYDRALAZINE HCL 20 MG/ML VIAL IV PRN (00:45)
[2024-09-09] MEDS: NITROGLYCERIN 0.4 MG/TAB SL PRN (01:17)
[2024-09-09] MEDS: MORPHINE 2 MG/ML SYR IV ONE (01:29)
[2024-09-09] MEDS: NITROGLYCERIN 0.4 MG/TAB SL ONE (02:48)
[2024-09-09] MEDS: HEPARIN/D5W 25,000 UNIT/500 ML BAG IV SCH (03:12)
[2024-09-09 04:00] VITALS: O2SAT 97
[2024-09-09] MEDS: ATORVASTATIN 80 MG TAB PO SCH (04:01)
[2024-09-09] MEDS: ASPIRIN EC 81 MG TAB PO ONE (04:01)
[2024-09-09] MEDS: NITROGLYCERIN/D5W 50 MG/250 ML BTL IV SCH (04:12)
[2024-09-09 04:23] VITALS: TEMP 97.7
[2024-09-09 05:38] VITALS: BP 163/87
[2024-09-09] MEDS ORDERED: ASPIRIN EC 81 MG TAB PO SCH (09:00)
--- NOTE | 2024-09-12 12:28 | EKG ---
Test Date: 2024-09-09 Test Time: 00:25:21 Dehydrator: OC MEASUREMENT RESULTS: Intervals: Rate: 69 NV: 200 QRSD: 86 QT: 408 QTc: 437 [place]: P: 52 NV: 200 QRS: -31 T: -18 INTERPRETIVE STATEMENTS: Normal sinus rhythm Left axis deviation Inferior infarct, age undetermined Abnormal ECG Compared to ECG 09/08/2024 20:30:03 Left-axis deviation now present Myocardial infarct finding now present Electronically Signed On 09-12-24 12:21:51 CDT by Efrem Jasso
--- NOTE | 2024-09-12 12:29 | EKG ---
Test Date: 2024-09-08 Test Time: 20:30:03 Promotional Advertising Assistant: VIKRAM MEASUREMENT RESULTS: Intervals: Rate: 78 NJ: 206 QRSD: 82 QT: 376 QTc: 428 [place]: P: 59 [place]: 206 QRS: 4 T: 52 INTERPRETIVE STATEMENTS: Normal sinus rhythm Normal ECG Compared to ECG 04/16/2016 22:01:51 No significant changes Electronically Signed On 09-12-24 12:22:13 CDT by Efrem Jasso
== END 2024-09-09 06:28 | disposition short-term general hospital (02) ==
LOC: ER 20:04 → ERHOLD 21:44 → 2ND 22:26 → 3RD-ICU 09-09 03:35
PROVIDERS: ADMIT Internal Medicine; ATTEND Hospitalist
DX: R07.9 Chest pain, unspecified (principal); N17.9 Acute kidney failure, unspecified; I10 Essential (primary) hypertension; I25.10 Atherosclerotic heart disease of native coronary artery without angina pectoris; Z95.1 Presence of aortocoronary bypass graft
CPT/HCPCS: 93005 ×2; 85025; 80048; 36415 ×2; 83735; 85610; 80061; 80076; 85730; 84484 ×2; 83880; 71045; 96375; 96374; 99285; J0360; J2270; J1644; J2405; G0378 ×3